=== PATIENT | male | born 1975 | race African-American/Black ===

== ENCOUNTER 2021-09-08 10:50 | Inpatient (IN) ==
[2021-09-08] MEDS ORDERED: METOPROLOL TARTRATE 5 MG/5 ML VIAL IV ONE ×2 (13:15→13:16)
[2021-09-08] MEDS ORDERED: ALBUTEROL 2.5 MG/3 ML NEB RESP TX PRN (13:21)
[2021-09-08 13:24] LABS: ABG Base Excess -7.5 MMOL/L (-2.5-2.5); ABG HCO3 18.4 MMOL/L (20-26); ABG Oxygen Saturation 96.6 % (95-100); ABG PCO2 45.1 MM HG (35-48); ABG PH 7.253 (7.35-7.45); ABG TCO2 17.6 MMOL/L (23-27)
[2021-09-08] MEDS ORDERED: MORPHINE 2 MG/1 ML SYRINGE IV PRN (13:24)
[2021-09-08] MEDS ORDERED: ONDANSETRON 4 MG/2 ML VIAL IV PRN (13:24)
[2021-09-08 13:26] LABS: Bacteria,Urine Occasional /HPF (Few); Mucus,Urine Occasional /LPF (Occasional); RBC,Urine 153 /HPF (0-4); Squamous Epithelial Cell,Urine Occasional /HPF (0-10); Urine Appearance Clear (Clear); Urine Color Yellow (Yellow)
[2021-09-08 13:27] LABS: Bilirubin,Urine Negative (Negative); Blood, Urine Large mg/dL (Negative); Glucose,Urine (UA) Negative (Negative); Ketones,Urine Negative (Negative); Nitrite,Urine Negative (Negative); Protein,Urine Negative (Negative); Urine Urobilinogen 0.2 eU/dL (<2.0); Urine pH 5.5 (4.5-8.0)
[2021-09-08 14:01] LABS: Barbiturates Screen,Urine Negative (Negative); Benzodiazepines Screen,Urine Negative (Negative); Cannabinoid Screen,Urine Positive (Negative); Opiate Screen,Urine Negative (Negative); Phencyclidine Screen,Urine Negative (Negative)
[2021-09-08] MEDS ORDERED: ENOXAPARIN 40 MG/0.4 ML SYRINGE SUBCUT SCH (14:30)
[2021-09-08] MEDS ORDERED: SODIUM BICARBONATE 50 MEQ/50 ML VIAL IV ONE (14:43)
[2021-09-08 14:59] LABS: Hepatitis B Core IgM Quant < 0.05 Index; Hepatitis B Surface Ag Result Non-Reactive (NonReactive); Hepatitis C Virus Ab Quant 0.07 Index; Hepatitis C Virus Ab Result Non-Reactive (NonReactive)
[2021-09-08] MEDS: SODIUM CHLORIDE 0.9% 1,000 ML IV SCH (16:20)
[2021-09-08] MEDS: PANTOPRAZOLE 40 MG VIAL IV SCH (16:21)
[2021-09-08] MEDS: ENOXAPARIN 60 MG/0.6 ML SYRINGE SUBCUT SCH (16:21)
[2021-09-08] MEDS: methylPREDNISolone SOD SUC 40 MG/1 ML VIAL IV SCH ×2 (16:21→21:48)
[2021-09-08] MEDS: AZITHROMYCIN INJ 500 MG in SODIUM CHLORIDE 0.9% 250 ML IV SCH (16:21)
[2021-09-08] MEDS: cefTRIAXone 1,000 MG in SODIUM CHLORIDE 0.9% 100 ML IV SCH (16:21)
[2021-09-08] MEDS ORDERED: GLUCAGON 1 MG VIAL IM PRN (16:43)
[2021-09-08] MEDS ORDERED: DEXTROSE 10% 250 ML BAG IV PRN (16:45)
[2021-09-08] MEDS: ACETAMINOPHEN 650 MG SUPP RECTAL PRN (17:00)
[2021-09-08] MEDS: ALBUTEROL/IPRATROPIUM 3 ML NEB RESP TX SCH (20:10)
[2021-09-08] MEDS: MIDAZOLAM 100 MG in SODIUM CHLORIDE 0.9% 80 ML IV PRN (20:55)
[2021-09-09] MEDS: ALBUTEROL/IPRATROPIUM 3 ML NEB RESP TX SCH ×4 (00:05→19:54)
[2021-09-09] MEDS: SODIUM CHLORIDE 0.9% 1,000 ML IV SCH ×3 (00:13→17:20)
[2021-09-09] MEDS: ENOXAPARIN 60 MG/0.6 ML SYRINGE SUBCUT SCH (02:11)
[2021-09-09 04:05] LABS: ABG HCO3 18.8 MMOL/L (20-26); ABG Oxygen Saturation 98.3 % (95-100); ABG PCO2 42.8 MM HG (35-48); ABG PH 7.273 (7.35-7.45); ABG TCO2 17.5 MMOL/L (23-27)
[2021-09-09 04:10] LABS: Basophils # 0.2 10*3/uL (0.0-0.2); Basophils % 0.7 % (0.0-0.8); Hematocrit 36.2 VOL% (42.0-52.0); Hemoglobin 12.9 GM/DL (14.0-18.0); Lymphocytes # 0.4 10*3/uL (1.4-4.0); Lymphocytes % 1.4 % (21.2-54.2); Mean Corpuscular HGB Conc 35.6 GM/DL (32-36); Mean Corpuscular Volume 93.3 FL (87-102); Mean Platelet Volume 12.1 FL (9.6-12.0); Monocytes # 0.3 10*3/uL (0.11-0.8); Monocytes % 1.1 % (1.7-12.7); NRBC # 0.02 10*3/uL; Neutrophils % 94.8 % (38.7-73.9); Platelet Count 205 T/CUMM (130-400); Red Blood Count 3.88 MC/CUMM (3.8-5.5); Red Cell Distribution Width 13.6 % (9.3-17.3); White Blood Count 25.6 T/CUMM (4-12)
[2021-09-09 04:19] LABS: PT Patient Result 11.5 SECS (10.5-12.0)
[2021-09-09 04:26] LABS: Lactic Acid 1.6 MMOL/L (0.4-2.0)
[2021-09-09 04:29] LABS: Band Neutrophils 4 % (0-10); Lymphocytes 1 % (20-55); Platelet Estimate Adequate; Total Cells Counted 100
[2021-09-09 04:41] LABS: Albumin 1.5 G/DL (3.4-5.0); Bilirubin,Total 1.3 MG/DL (0.20-1.00); Calcium 8.5 MG/DL (8.5-10.1); Osmolality,Calculated 294.4 MOS/KG (273-304); Potassium 3.8 MMOL/L (3.5-5.1); Risk Ratio 9.67; Thyroid Stimulating Hormone 0.229 uIU/ml (0.358-3.74); Total Protein 6.9 G/DL (6.4-8.2); VLDL Cholesterol 69.2 MG/DL
[2021-09-09] MEDS: methylPREDNISolone SOD SUC 40 MG/1 ML VIAL IV SCH ×3 (05:48→21:38)
[2021-09-09] MEDS ORDERED: SODIUM BICARBONATE 50 MEQ/50 ML VIAL IV ONE (05:54)
[2021-09-09 09:01] LABS: HIV Antigen/Antibody Result Nonreactive (Nonreactive)
[2021-09-09] MEDS: METOPROLOL TARTRATE 25 MG TABLET PO SCH ×2 (09:59→21:15)
[2021-09-09] MEDS: cefTRIAXone 1,000 MG in SODIUM CHLORIDE 0.9% 100 ML IV SCH (14:53)
[2021-09-09] MEDS: AZITHROMYCIN INJ 500 MG in SODIUM CHLORIDE 0.9% 250 ML IV SCH (14:54)
[2021-09-09] MEDS: PANTOPRAZOLE 40 MG VIAL IV SCH (14:54)
[2021-09-09] MEDS: ACETAMINOPHEN 650 MG SUPP RECTAL PRN (15:30)
[2021-09-09] MEDS: MIDAZOLAM 100 MG in SODIUM CHLORIDE 0.9% 80 ML IV PRN (23:53)
[2021-09-10] MEDS: SODIUM CHLORIDE 0.9% 1,000 ML IV SCH ×3 (00:28→18:58)
[2021-09-10] MEDS: ALBUTEROL/IPRATROPIUM 3 ML NEB RESP TX SCH ×4 (01:35→18:54)
[2021-09-10 03:20] LABS: ABG Base Excess -6.6 MMOL/L (-2.5-2.5); ABG HCO3 19.1 MMOL/L (20-26); ABG Oxygen Saturation 97.7 % (95-100); ABG PCO2 42.9 MM HG (35-48); ABG PH 7.278 (7.35-7.45); ABG TCO2 17.9 MMOL/L (23-27)
[2021-09-10 03:24] LABS: Basophils # 0.2 10*3/uL (0.0-0.2); Basophils % 0.5 % (0.0-0.8); Hematocrit 34.5 VOL% (42.0-52.0); Hemoglobin 12.2 GM/DL (14.0-18.0); Immature Granulocytes % 4.9 %; Immature Granulocytes Absolute 1.52 #; Lymphocytes # 0.5 10*3/uL (1.4-4.0); Lymphocytes % 1.5 % (21.2-54.2); Mean Corpuscular HGB Conc 35.4 GM/DL (32-36); Mean Platelet Volume 11.8 FL (9.6-12.0); Monocytes # 0.4 10*3/uL (0.11-0.8); Monocytes % 1.4 % (1.7-12.7); NRBC # 0.05 10*3/uL; Neutrophils % 91.7 % (38.7-73.9); Platelet Count 275 T/CUMM (130-400); Red Blood Count 3.67 MC/CUMM (3.8-5.5); Red Cell Distribution Width 14.4 % (9.3-17.3); White Blood Count 30.7 T/CUMM (4-12)
[2021-09-10 03:38] LABS: Calcium 8.5 MG/DL (8.5-10.1); Osmolality,Calculated 309.7 MOS/KG (273-304); Phosphorous 6.5 MG/DL (2.5-4.9); Potassium 4.1 MMOL/L (3.5-5.1)
[2021-09-10 03:52] LABS: Band Neutrophils 1 % (0-10); Lymphocytes 1 % (20-55); Platelet Estimate Adequate; Total Cells Counted 100
[2021-09-10] MEDS: METOPROLOL TARTRATE 5 MG/5 ML VIAL IV PRN (04:45)
[2021-09-10] MEDS: ENOXAPARIN 60 MG/0.6 ML SYRINGE SUBCUT SCH (04:45)
[2021-09-10] MEDS ORDERED: SODIUM BICARBONATE 50 MEQ/50 ML VIAL IV ONE ×2 (04:52→04:54)
[2021-09-10] MEDS: methylPREDNISolone SOD SUC 40 MG/1 ML VIAL IV SCH ×3 (05:36→22:10)
[2021-09-10] MEDS: METOPROLOL TARTRATE 25 MG TABLET PO SCH ×2 (09:23→20:37)
[2021-09-10 11:08] LABS: Ferritin - (MMA) > 1500.0 ng/ml (22-336)
[2021-09-10] MEDS: cefTRIAXone 1,000 MG in SODIUM CHLORIDE 0.9% 100 ML IV SCH (14:02)
[2021-09-10] MEDS: AZITHROMYCIN INJ 500 MG in SODIUM CHLORIDE 0.9% 250 ML IV SCH (14:49)
[2021-09-10] MEDS: PANTOPRAZOLE 40 MG VIAL IV SCH (14:49)
[2021-09-10] MEDS: fentaNYL INJ 1,250 MCG in SODIUM CHLORIDE 0.9% 225 ML IV PRN (16:15)
[2021-09-10] MEDS ORDERED: DEXTROSE 10% 250 ML BAG IV PRN (17:55)
[2021-09-10] MEDS: INSULIN LISPRO 100 UNIT/ML SUBCUT SCH (18:05)
[2021-09-10] MEDS: MIDAZOLAM 100 MG in SODIUM CHLORIDE 0.9% 80 ML IV PRN (20:12)
[2021-09-11] MEDS: INSULIN LISPRO 100 UNIT/ML SUBCUT SCH ×4 (00:31→17:40)
[2021-09-11] MEDS: ALBUTEROL/IPRATROPIUM 3 ML NEB RESP TX SCH ×4 (00:44→19:42)
[2021-09-11] MEDS: SODIUM CHLORIDE 0.9% 1,000 ML IV SCH ×2 (02:59→09:06)
[2021-09-11 04:27] LABS: ABG HCO3 18.8 MMOL/L (20-26); ABG Oxygen Saturation 98.1 % (95-100); ABG PCO2 39.5 MM HG (35-48); ABG PH 7.294 (7.35-7.45); ABG TCO2 17.4 MMOL/L (23-27)
[2021-09-11 04:28] LABS: Basophils # 0.2 10*3/uL (0.0-0.2); Basophils % 0.7 % (0.0-0.8); Eosinophils % 0.1 % (0.00-10.9); Hematocrit 32.2 VOL% (42.0-52.0); Hemoglobin 11.5 GM/DL (14.0-18.0); Immature Granulocytes % 8.1 %; Immature Granulocytes Absolute 2.13 #; Lymphocytes # 0.7 10*3/uL (1.4-4.0); Lymphocytes % 2.5 % (21.2-54.2); Mean Corpuscular HGB Conc 35.7 GM/DL (32-36); Mean Corpuscular Volume 92.3 FL (87-102); Mean Platelet Volume 11.3 FL (9.6-12.0); Monocytes # 0.8 10*3/uL (0.11-0.8); Monocytes % 2.9 % (1.7-12.7); NRBC # 0.07 10*3/uL; Neutrophils % 85.7 % (38.7-73.9); Platelet Count 317 T/CUMM (130-400); Red Blood Count 3.49 MC/CUMM (3.8-5.5); Red Cell Distribution Width 14.6 % (9.3-17.3); White Blood Count 26.4 T/CUMM (4-12)
[2021-09-11 04:46] LABS: Band Neutrophils 2 % (0-10); Lymphocytes 3 % (20-55); Platelet Estimate Adequate; Total Cells Counted 100
[2021-09-11 04:49] LABS: Albumin 1.3 G/DL (3.4-5.0); Bilirubin,Total 0.5 MG/DL (0.20-1.00); Calcium 8.7 MG/DL (8.5-10.1); Phosphorous 6.6 MG/DL (2.5-4.9); Potassium 4.4 MMOL/L (3.5-5.1); Total Protein 5.9 G/DL (6.4-8.2)
[2021-09-11] MEDS: ENOXAPARIN 60 MG/0.6 ML SYRINGE SUBCUT SCH (05:25)
[2021-09-11] MEDS: fentaNYL INJ 1,250 MCG in SODIUM CHLORIDE 0.9% 225 ML IV PRN ×2 (06:07→17:26)
[2021-09-11] MEDS: methylPREDNISolone SOD SUC 40 MG/1 ML VIAL IV SCH ×3 (06:08→21:30)
[2021-09-11] MEDS: MIDAZOLAM 100 MG in SODIUM CHLORIDE 0.9% 80 ML IV PRN ×2 (08:36→19:19)
[2021-09-11] MEDS: SODIUM BICARB INJ 50 MEQ in SODIUM CHLORIDE 0.45% 1,000 ML IV SCH ×2 (09:37→19:30)
[2021-09-11] MEDS: METOPROLOL TARTRATE 25 MG TABLET PO SCH ×2 (09:37→21:30)
[2021-09-11] MEDS: cefTRIAXone 1,000 MG in SODIUM CHLORIDE 0.9% 100 ML IV SCH (14:12)
[2021-09-11] MEDS: PANTOPRAZOLE 40 MG VIAL IV SCH (14:12)
[2021-09-11] MEDS: AZITHROMYCIN INJ 500 MG in SODIUM CHLORIDE 0.9% 250 ML IV SCH (14:12)
[2021-09-11] MEDS: METOPROLOL TARTRATE 5 MG/5 ML VIAL IV PRN (22:06)
[2021-09-11] MEDS: hydrALAZINE 20 MG/1 ML VIAL IV PRN (22:19)
[2021-09-12] MEDS: ALBUTEROL/IPRATROPIUM 3 ML NEB RESP TX SCH ×5 (00:54→23:53)
[2021-09-12] MEDS: INSULIN LISPRO 100 UNIT/ML SUBCUT SCH ×5 (01:49→23:22)
[2021-09-12] MEDS: fentaNYL INJ 1,250 MCG in SODIUM CHLORIDE 0.9% 225 ML IV PRN ×3 (01:50→17:44)
[2021-09-12 04:55] LABS: ABG Base Excess -5.4 MMOL/L (-2.5-2.5); ABG HCO3 19.9 MMOL/L (20-26); ABG Oxygen Saturation 92.1 % (95-100); ABG PCO2 33.7 MM HG (35-48); ABG PH 7.363 (7.35-7.45); ABG TCO2 16.9 MMOL/L (23-27)
[2021-09-12 04:57] LABS: Basophils # 0.2 10*3/uL (0.0-0.2); Basophils % 0.8 % (0.0-0.8); Eosinophils # 0.1 10*3/uL (0.0-0.87); Eosinophils % 0.3 % (0.00-10.9); Hematocrit 34.3 VOL% (42.0-52.0); Hemoglobin 12.6 GM/DL (14.0-18.0); Immature Granulocytes % 9.5 %; Immature Granulocytes Absolute 2.39 #; Lymphocytes # 1.2 10*3/uL (1.4-4.0); Lymphocytes % 4.7 % (21.2-54.2); Mean Corpuscular HGB Conc 36.7 GM/DL (32-36); Mean Corpuscular Volume 90.5 FL (87-102); Mean Platelet Volume 11.4 FL (9.6-12.0); Monocytes # 1.1 10*3/uL (0.11-0.8); Monocytes % 4.3 % (1.7-12.7); NRBC # 0.05 10*3/uL; Neutrophils % 80.4 % (38.7-73.9); Platelet Count 341 T/CUMM (130-400); Red Blood Count 3.79 MC/CUMM (3.8-5.5); Red Cell Distribution Width 14.4 % (9.3-17.3); White Blood Count 25.1 T/CUMM (4-12)
[2021-09-12 05:20] LABS: Albumin 1.2 G/DL (3.4-5.0); Band Neutrophils 3 % (0-10); Bilirubin,Total 0.5 MG/DL (0.20-1.00); Calcium 8.5 MG/DL (8.5-10.1); Eosinophils 2 % (0-10); Lymphocytes 3 % (20-55); Osmolality,Calculated 341.3 MOS/KG (273-304); Platelet Estimate Adequate; Total Cells Counted 100; Total Protein 5.9 G/DL (6.4-8.2)
[2021-09-12] MEDS: MIDAZOLAM 100 MG in SODIUM CHLORIDE 0.9% 80 ML IV PRN ×2 (05:55→16:28)
[2021-09-12] MEDS: ENOXAPARIN 60 MG/0.6 ML SYRINGE SUBCUT SCH (05:55)
[2021-09-12] MEDS: methylPREDNISolone SOD SUC 40 MG/1 ML VIAL IV SCH ×3 (05:56→21:35)
[2021-09-12] MEDS: SODIUM BICARB INJ 50 MEQ in SODIUM CHLORIDE 0.45% 1,000 ML IV SCH ×2 (06:33→16:29)
[2021-09-12] MEDS: METOPROLOL TARTRATE 25 MG TABLET PO SCH ×2 (08:04→20:30)
[2021-09-12] MEDS ORDERED: cloNIDine 0.3 MG/24 HR PATCH TRANSDERM SCH (09:00)
[2021-09-12] MEDS: METOCLOPRAMIDE 10 MG/2 ML VIAL IV SCH ×3 (11:12→20:30)
[2021-09-12] MEDS: FLUCONAZOLE INJ 200 MG/100 ML PREMIX IV SCH (11:12)
[2021-09-12] MEDS: PANTOPRAZOLE 40 MG VIAL IV SCH (15:49)
[2021-09-12] MEDS: cefTRIAXone 1,000 MG in SODIUM CHLORIDE 0.9% 100 ML IV SCH (15:50)
[2021-09-12] MEDS: AZITHROMYCIN INJ 500 MG in SODIUM CHLORIDE 0.9% 250 ML IV SCH (15:58)
[2021-09-13] MEDS: fentaNYL INJ 1,250 MCG in SODIUM CHLORIDE 0.9% 225 ML IV PRN ×4 (00:44→23:34)
[2021-09-13] MEDS: SODIUM BICARB INJ 50 MEQ in SODIUM CHLORIDE 0.45% 1,000 ML IV SCH ×3 (03:00→23:44)
[2021-09-13] MEDS: METOCLOPRAMIDE 10 MG/2 ML VIAL IV SCH ×4 (03:30→21:49)
[2021-09-13] MEDS: MIDAZOLAM 100 MG in SODIUM CHLORIDE 0.9% 80 ML IV PRN ×2 (03:32→14:52)
[2021-09-13 03:41] LABS: ABG Base Excess -4.7 MMOL/L (-2.5-2.5); ABG HCO3 20.5 MMOL/L (20-26); ABG Oxygen Saturation 93.6 % (95-100); ABG PH 7.363 (7.35-7.45); ABG TCO2 17.6 MMOL/L (23-27); Basophils # 0.1 10*3/uL (0.0-0.2); Basophils % 0.6 % (0.0-0.8); Eosinophils % 0.2 % (0.00-10.9); Hemoglobin 11.9 GM/DL (14.0-18.0); Immature Granulocytes % 9.2 %; Lymphocytes # 1.1 10*3/uL (1.4-4.0); Lymphocytes % 4.4 % (21.2-54.2); Mean Corpuscular HGB Conc 36.1 GM/DL (32-36); Mean Corpuscular Volume 90.4 FL (87-102); Mean Platelet Volume 11.4 FL (9.6-12.0); Monocytes # 1.2 10*3/uL (0.11-0.8); Monocytes % 4.7 % (1.7-12.7); NRBC # 0.06 10*3/uL; Neutrophils % 80.9 % (38.7-73.9); Platelet Count 323 T/CUMM (130-400); Red Blood Count 3.65 MC/CUMM (3.8-5.5); Red Cell Distribution Width 14.7 % (9.3-17.3)
[2021-09-13 03:57] LABS: Albumin 1.3 G/DL (3.4-5.0); Bilirubin,Total 0.5 MG/DL (0.20-1.00); Calcium 8.1 MG/DL (8.5-10.1); Osmolality,Calculated 345.3 MOS/KG (273-304); Potassium 4.4 MMOL/L (3.5-5.1); Total Protein 5.9 G/DL (6.4-8.2)
[2021-09-13 04:40] LABS: Band Neutrophils 2 % (0-10); Lymphocytes 5 % (20-55); Myelocytes 2 %; Total Cells Counted 100
[2021-09-13] MEDS: ENOXAPARIN 60 MG/0.6 ML SYRINGE SUBCUT SCH (04:55)
[2021-09-13] MEDS: INSULIN LISPRO 100 UNIT/ML SUBCUT SCH ×4 (05:24→23:50)
[2021-09-13] MEDS: methylPREDNISolone SOD SUC 40 MG/1 ML VIAL IV SCH ×2 (05:30→18:38)
[2021-09-13] MEDS: ALBUTEROL/IPRATROPIUM 3 ML NEB RESP TX SCH ×4 (07:46→23:45)
[2021-09-13] MEDS: METOPROLOL TARTRATE 25 MG TABLET PO SCH ×2 (08:49→21:49)
[2021-09-13] MEDS: FLUCONAZOLE INJ 200 MG/100 ML PREMIX IV SCH (08:50)
[2021-09-13] MEDS: cefTRIAXone 1,000 MG in SODIUM CHLORIDE 0.9% 100 ML IV SCH (17:15)
[2021-09-13] MEDS: PANTOPRAZOLE 40 MG VIAL IV SCH (17:15)
[2021-09-13] MEDS: hydrALAZINE 20 MG/1 ML VIAL IV PRN (18:30)
[2021-09-13] MEDS: AZITHROMYCIN INJ 500 MG in SODIUM CHLORIDE 0.9% 250 ML IV SCH (18:38)
[2021-09-13] MEDS ORDERED: ROCURONIUM 100 MG/10 ML VIAL IV ONE (19:07)
[2021-09-13] MEDS: METOPROLOL TARTRATE 5 MG/5 ML VIAL IV PRN (19:20)
[2021-09-13] MEDS: ROCURONIUM 500 MG in SODIUM CHLORIDE 0.9% 500 ML IV PRN (19:55)
[2021-09-14] MEDS: methylPREDNISolone SOD SUC 40 MG/1 ML VIAL IV SCH ×3 (00:05→16:41)
[2021-09-14] MEDS: MIDAZOLAM 100 MG in SODIUM CHLORIDE 0.9% 80 ML IV PRN ×3 (01:40→21:46)
[2021-09-14] MEDS: METOCLOPRAMIDE 10 MG/2 ML VIAL IV SCH ×4 (03:27→21:27)
[2021-09-14] MEDS: ENOXAPARIN 60 MG/0.6 ML SYRINGE SUBCUT SCH (04:11)
[2021-09-14 04:25] LABS: ABG Base Excess -5.9 MMOL/L (-2.5-2.5); ABG HCO3 19.6 MMOL/L (20-26); ABG Oxygen Saturation 98.7 % (95-100); ABG PCO2 32.9 MM HG (35-48); ABG PH 7.363 (7.35-7.45); ABG TCO2 16.8 MMOL/L (23-27)
[2021-09-14 04:29] LABS: Basophils # 0.2 10*3/uL (0.0-0.2); Basophils % 0.5 % (0.0-0.8); Eosinophils # 0.1 10*3/uL (0.0-0.87); Eosinophils % 0.3 % (0.00-10.9); Hematocrit 29.7 VOL% (42.0-52.0); Hemoglobin 10.6 GM/DL (14.0-18.0); Immature Granulocytes % 8.2 %; Immature Granulocytes Absolute 2.64 #; Lymphocytes # 1.2 10*3/uL (1.4-4.0); Lymphocytes % 3.8 % (21.2-54.2); Mean Corpuscular HGB Conc 35.7 GM/DL (32-36); Mean Corpuscular Volume 92.5 FL (87-102); Mean Platelet Volume 11.4 FL (9.6-12.0); Monocytes % 3.1 % (1.7-12.7); NRBC # 0.03 10*3/uL; Neutrophils % 84.1 % (38.7-73.9); Platelet Count 318 T/CUMM (130-400); Red Blood Count 3.21 MC/CUMM (3.8-5.5); Red Cell Distribution Width 15.1 % (9.3-17.3); White Blood Count 32.3 T/CUMM (4-12)
[2021-09-14 04:49] LABS: Albumin 1.3 G/DL (3.4-5.0); Bilirubin,Total 0.5 MG/DL (0.20-1.00); Osmolality,Calculated 349.1 MOS/KG (273-304); Phosphorous 6.5 MG/DL (2.5-4.9); Potassium 4.7 MMOL/L (3.5-5.1)
[2021-09-14 05:15] LABS: Band Neutrophils 1 % (0-10); Lymphocytes 4 % (20-55); Metamyelocytes 1 %; Myelocytes 1 %; Total Cells Counted 100
[2021-09-14 05:16] LABS: Microcytosis Slight; Platelet Estimate Normal; Target Cells Slight
[2021-09-14] MEDS: INSULIN LISPRO 100 UNIT/ML SUBCUT SCH ×3 (05:47→18:11)
[2021-09-14] MEDS: fentaNYL INJ 1,250 MCG in SODIUM CHLORIDE 0.9% 225 ML IV PRN ×3 (06:02→19:30)
[2021-09-14] MEDS: ROCURONIUM 500 MG in SODIUM CHLORIDE 0.9% 500 ML IV PRN ×2 (06:26→17:34)
[2021-09-14] MEDS: ALBUTEROL/IPRATROPIUM 3 ML NEB RESP TX SCH ×4 (06:59→23:48)
[2021-09-14] MEDS ORDERED: SODIUM BICARBONATE 50 MEQ/50 ML VIAL IV ONE (09:04)
[2021-09-14] MEDS: FLUCONAZOLE INJ 200 MG/100 ML PREMIX IV SCH (09:47)
[2021-09-14] MEDS: METOPROLOL TARTRATE 25 MG TABLET PO SCH ×2 (09:48→21:26)
[2021-09-14] MEDS: PANTOPRAZOLE 40 MG VIAL IV SCH (09:48)
[2021-09-14] MEDS: SODIUM BICARB INJ 50 MEQ in SODIUM CHLORIDE 0.45% 1,000 ML IV SCH ×2 (10:32→21:00)
[2021-09-14] MEDS ORDERED: FUROSEMIDE 100 MG/10 ML VIAL IV ONE (11:07)
[2021-09-14] MEDS ORDERED: FUROSEMIDE INJ 120 MG in SODIUM CHLORIDE 0.9% 50 ML IV ONE (11:30)
[2021-09-14] MEDS ORDERED: MICAFUNGIN 100 MG in SODIUM CHLORIDE 0.9% 100 ML IV SCH (13:00)
[2021-09-14] MEDS: AZITHROMYCIN INJ 500 MG in SODIUM CHLORIDE 0.9% 250 ML IV SCH (16:41)
[2021-09-15] MEDS: INSULIN LISPRO 100 UNIT/ML SUBCUT SCH ×4 (00:28→18:05)
[2021-09-15] MEDS: methylPREDNISolone SOD SUC 40 MG/1 ML VIAL IV SCH ×3 (00:28→20:39)
[2021-09-15] MEDS: hydrALAZINE 20 MG/1 ML VIAL IV PRN (02:01)
[2021-09-15] MEDS: fentaNYL INJ 1,250 MCG in SODIUM CHLORIDE 0.9% 225 ML IV PRN ×3 (02:19→19:09)
[2021-09-15] MEDS: METOCLOPRAMIDE 10 MG/2 ML VIAL IV SCH ×4 (02:59→20:37)
[2021-09-15] MEDS: ENOXAPARIN 60 MG/0.6 ML SYRINGE SUBCUT SCH (04:08)
[2021-09-15] MEDS: ROCURONIUM 500 MG in SODIUM CHLORIDE 0.9% 500 ML IV PRN ×2 (04:08→16:06)
[2021-09-15 05:12] LABS: ABG Base Excess -4.9 MMOL/L (-2.5-2.5); ABG HCO3 20.3 MMOL/L (20-26); ABG Oxygen Saturation 96.1 % (95-100); ABG PCO2 36.3 MM HG (35-48); ABG PH 7.351 (7.35-7.45); ABG PO2 97.4 MM HG (80-95); ABG TCO2 18.2 MMOL/L (23-27)
[2021-09-15 05:16] LABS: Basophils # 0.1 10*3/uL (0.0-0.2); Basophils % 0.4 % (0.0-0.8); Eosinophils % 0.1 % (0.00-10.9); Hematocrit 31.3 VOL% (42.0-52.0); Hemoglobin 11.1 GM/DL (14.0-18.0); Immature Granulocytes % 5.6 %; Immature Granulocytes Absolute 1.66 #; Lymphocytes # 1.2 10*3/uL (1.4-4.0); Mean Corpuscular HGB Conc 35.5 GM/DL (32-36); Mean Corpuscular Volume 92.3 FL (87-102); Mean Platelet Volume 11.7 FL (9.6-12.0); Monocytes # 0.9 10*3/uL (0.11-0.8); Neutrophils % 86.9 % (38.7-73.9); Platelet Count 272 T/CUMM (130-400); Red Blood Count 3.39 MC/CUMM (3.8-5.5); White Blood Count 29.4 T/CUMM (4-12)
[2021-09-15 05:34] LABS: Band Neutrophils 2 % (0-10); Lymphocytes 5 % (20-55); Platelet Estimate Adequate; Total Cells Counted 100
[2021-09-15 05:35] LABS: Macrocytosis Slight; Target Cells Slight
[2021-09-15 05:51] LABS: Albumin 1.4 G/DL (3.4-5.0); Bilirubin,Total 0.4 MG/DL (0.20-1.00); Calcium 7.8 MG/DL (8.5-10.1); Osmolality,Calculated 347.1 MOS/KG (273-304); Potassium 4.5 MMOL/L (3.5-5.1); Total Protein 5.9 G/DL (6.4-8.2)
[2021-09-15 06:02] LABS: Phosphorous 7.3 MG/DL (2.5-4.9)
[2021-09-15] MEDS: ALBUTEROL/IPRATROPIUM 3 ML NEB RESP TX SCH ×3 (06:53→19:13)
[2021-09-15] MEDS: SODIUM BICARB INJ 50 MEQ in SODIUM CHLORIDE 0.45% 1,000 ML IV SCH (08:12)
[2021-09-15] MEDS: MIDAZOLAM 100 MG in SODIUM CHLORIDE 0.9% 80 ML IV PRN ×2 (08:42→19:36)
[2021-09-15] MEDS: SODIUM CHLORIDE 0.45% 1,000 ML IV SCH (08:44)
[2021-09-15] MEDS: PANTOPRAZOLE 40 MG VIAL IV SCH (09:28)
[2021-09-15] MEDS: METOPROLOL TARTRATE 25 MG TABLET PO SCH ×2 (09:30→20:36)
[2021-09-15] MEDS: MINERAL OIL/PETROLATUM OPH OINT 3.5 GM TUBE BOTH EYES SCH ×3 (10:43→21:26)
[2021-09-15] MEDS: cloNIDine 0.1 MG TABLET PER TUBE PRN (11:33)
[2021-09-15] MEDS: FLUCONAZOLE INJ 200 MG/100 ML PREMIX IV SCH (11:55)
[2021-09-15] MEDS: THIAMINE 200 MG/2 ML VIAL IV SCH ×3 (13:15→20:40)
[2021-09-15] MEDS: AZITHROMYCIN INJ 500 MG in SODIUM CHLORIDE 0.9% 250 ML IV SCH (17:02)
[2021-09-15] MEDS: FOLIC ACID 1 MG TABLET PO SCH (20:37)
[2021-09-16] MEDS: ALBUTEROL/IPRATROPIUM 3 ML NEB RESP TX SCH ×4 (00:03→18:55)
[2021-09-16] MEDS: SODIUM CHLORIDE 0.45% 1,000 ML IV SCH (00:08)
[2021-09-16] MEDS: INSULIN LISPRO 100 UNIT/ML SUBCUT SCH ×5 (00:11→23:53)
[2021-09-16] MEDS: METOCLOPRAMIDE 10 MG/2 ML VIAL IV SCH ×4 (02:28→20:41)
[2021-09-16] MEDS: fentaNYL INJ 1,250 MCG in SODIUM CHLORIDE 0.9% 225 ML IV PRN ×3 (02:52→18:30)
[2021-09-16 04:47] LABS: ABG Base Excess -7.2 MMOL/L (-2.5-2.5); ABG HCO3 18.5 MMOL/L (20-26); ABG Oxygen Saturation 98.1 % (95-100); ABG PCO2 34.5 MM HG (35-48); ABG PH 7.326 (7.35-7.45); ABG TCO2 16.5 MMOL/L (23-27)
[2021-09-16 04:49] LABS: Basophils # 0.1 10*3/uL (0.0-0.2); Basophils % 0.2 % (0.0-0.8); Eosinophils # 0.1 10*3/uL (0.0-0.87); Eosinophils % 0.2 % (0.00-10.9); Hematocrit 29.8 VOL% (42.0-52.0); Hemoglobin 10.1 GM/DL (14.0-18.0); Immature Granulocytes % 3.2 %; Immature Granulocytes Absolute 0.94 #; Lymphocytes # 1.1 10*3/uL (1.4-4.0); Lymphocytes % 3.8 % (21.2-54.2); Mean Corpuscular HGB Conc 33.9 GM/DL (32-36); Mean Corpuscular Volume 95.5 FL (87-102); Mean Platelet Volume 11.6 FL (9.6-12.0); Monocytes % 3.3 % (1.7-12.7); Neutrophils % 89.3 % (38.7-73.9); Platelet Count 233 T/CUMM (130-400); Red Blood Count 3.12 MC/CUMM (3.8-5.5); Red Cell Distribution Width 15.9 % (9.3-17.3); White Blood Count 29.4 T/CUMM (4-12)
[2021-09-16 05:04] LABS: Albumin 1.4 G/DL (3.4-5.0); Bilirubin,Total 0.4 MG/DL (0.20-1.00); Calcium 7.8 MG/DL (8.5-10.1); Osmolality,Calculated 346.4 MOS/KG (273-304); Potassium 4.9 MMOL/L (3.5-5.1); Total Protein 5.8 G/DL (6.4-8.2)
[2021-09-16 05:07] LABS: Eosinophils 1 % (0-10); Lymphocytes 5 % (20-55); Platelet Estimate Adequate; Total Cells Counted 100
[2021-09-16] MEDS: ENOXAPARIN 60 MG/0.6 ML SYRINGE SUBCUT SCH (05:53)
[2021-09-16 06:02] LABS: Free T4 (Free Thyroxine) 0.32 NG/DL (0.76-1.46); Thyroid Stimulating Hormone 2.13 uIU/ml (0.358-3.74)
[2021-09-16] MEDS: MIDAZOLAM 100 MG in SODIUM CHLORIDE 0.9% 80 ML IV PRN ×2 (07:45→19:50)
[2021-09-16] MEDS: methylPREDNISolone SOD SUC 40 MG/1 ML VIAL IV SCH ×2 (09:27→20:40)
[2021-09-16] MEDS: METOPROLOL TARTRATE 25 MG TABLET PO SCH ×2 (09:29→20:41)
[2021-09-16] MEDS: PANTOPRAZOLE 40 MG VIAL IV SCH (09:29)
[2021-09-16] MEDS: THIAMINE 200 MG/2 ML VIAL IV SCH ×3 (09:34→20:42)
[2021-09-16] MEDS: MINERAL OIL/PETROLATUM OPH OINT 3.5 GM TUBE BOTH EYES PRN (09:46)
[2021-09-16] MEDS: MINERAL OIL/PETROLATUM OPH OINT 3.5 GM TUBE BOTH EYES SCH (10:06)
[2021-09-16 10:23] LABS: Mucus,Urine Occasional /LPF (Occasional); RBC,Urine 6 /HPF (0-4); Urine Appearance Clear (Clear); Urine Color Yellow (Yellow)
[2021-09-16 10:24] LABS: Bilirubin,Urine Negative (Negative); Blood, Urine Small mg/dL (Negative); Glucose,Urine (UA) Negative (Negative); Ketones,Urine Negative (Negative); Nitrite,Urine Negative (Negative); Protein,Urine Trace mg/dL (Negative); Urine Specific Gravity 1.015 (1.001-1.035); Urine Urobilinogen 0.2 eU/dL (<2.0); Urine pH 5.5 (4.5-8.0)
[2021-09-16] MEDS: cloNIDine 0.1 MG TABLET PER TUBE PRN (10:52)
[2021-09-16] MEDS ORDERED: cefTRIAXone 1,000 MG in SODIUM CHLORIDE 0.9% 100 ML IV SCH (11:00)
[2021-09-16] MEDS: hydrALAZINE 20 MG/1 ML VIAL IV PRN (12:03)
[2021-09-16] MEDS: FLUCONAZOLE INJ 200 MG/100 ML PREMIX IV SCH (12:08)
[2021-09-16] MEDS: AZITHROMYCIN INJ 500 MG in SODIUM CHLORIDE 0.9% 250 ML IV SCH (17:25)
[2021-09-16] MEDS: FOLIC ACID 1 MG TABLET PO SCH (20:41)
[2021-09-16] MEDS ORDERED: THIAMINE 100 MG TABLET PO SCH (21:00)
[2021-09-17] MEDS: fentaNYL INJ 1,250 MCG in SODIUM CHLORIDE 0.9% 225 ML IV PRN ×3 (01:30→20:06)
[2021-09-17] MEDS: ALBUTEROL/IPRATROPIUM 3 ML NEB RESP TX SCH ×4 (02:10→18:56)
[2021-09-17 03:59] LABS: ABG Base Excess -9.6 MMOL/L (-2.5-2.5); ABG HCO3 16.7 MMOL/L (20-26); ABG Oxygen Saturation 97.7 % (95-100); ABG PCO2 35.5 MM HG (35-48); ABG PH 7.275 (7.35-7.45); ABG TCO2 15.2 MMOL/L (23-27)
[2021-09-17] MEDS: ENOXAPARIN 60 MG/0.6 ML SYRINGE SUBCUT SCH (04:00)
[2021-09-17] MEDS: METOCLOPRAMIDE 10 MG/2 ML VIAL IV SCH ×4 (04:01→20:40)
[2021-09-17 04:05] LABS: Basophils # 0.1 10*3/uL (0.0-0.2); Basophils % 0.2 % (0.0-0.8); Eosinophils # 0.1 10*3/uL (0.0-0.87); Eosinophils % 0.3 % (0.00-10.9); Hematocrit 29.5 VOL% (42.0-52.0); Hemoglobin 9.9 GM/DL (14.0-18.0); Immature Granulocytes % 2.3 %; Immature Granulocytes Absolute 0.59 #; Lymphocytes % 4.1 % (21.2-54.2); Mean Corpuscular HGB Conc 33.6 GM/DL (32-36); Mean Corpuscular Volume 96.7 FL (87-102); Mean Platelet Volume 12.1 FL (9.6-12.0); Monocytes # 0.8 10*3/uL (0.11-0.8); Monocytes % 3.1 % (1.7-12.7); Platelet Count 218 T/CUMM (130-400); Red Blood Count 3.05 MC/CUMM (3.8-5.5); Red Cell Distribution Width 16.1 % (9.3-17.3); White Blood Count 25.1 T/CUMM (4-12)
[2021-09-17 04:21] LABS: Calcium 7.6 MG/DL (8.5-10.1); Osmolality,Calculated 337.7 MOS/KG (273-304); Potassium 5.4 MMOL/L (3.5-5.1)
[2021-09-17 04:51] LABS: Lymphocytes 6 % (20-55); Platelet Estimate Adequate; Total Cells Counted 100
[2021-09-17] MEDS ORDERED: SODIUM POLYSTYRENE SULFATE 15 GM/60 ML BOTTLE PO ONE (04:52)
[2021-09-17] MEDS ORDERED: SODIUM BICARBONATE 50 MEQ/50 ML VIAL IV ONE (04:52)
[2021-09-17] MEDS: INSULIN LISPRO 100 UNIT/ML SUBCUT SCH ×3 (05:27→17:56)
[2021-09-17] MEDS: MIDAZOLAM 100 MG in SODIUM CHLORIDE 0.9% 80 ML IV PRN (06:10)
[2021-09-17] MEDS ORDERED: FUROSEMIDE 40 MG/4 ML VIAL IV ONE (08:58)
[2021-09-17] MEDS: PANTOPRAZOLE 40 MG VIAL IV SCH (08:59)
[2021-09-17] MEDS: PIPERACILLIN/TAZOBACTAM 3,375 MG in SODIUM CHLORIDE 0.9% 100 ML IV SCH ×3 (08:59→23:44)
[2021-09-17] MEDS: methylPREDNISolone SOD SUC 40 MG/1 ML VIAL IV SCH ×2 (09:02→20:40)
[2021-09-17] MEDS: THIAMINE 200 MG/2 ML VIAL IV SCH ×3 (09:03→20:40)
[2021-09-17] MEDS: METOPROLOL TARTRATE 25 MG TABLET PO SCH ×2 (09:03→20:39)
[2021-09-17 09:45] LABS: Calcium 7.5 MG/DL (8.5-10.1); Osmolality,Calculated 335.6 MOS/KG (273-304); Potassium 4.9 MMOL/L (3.5-5.1)
[2021-09-17 10:00] LABS: S. Pneumo Serotype 1 42.8 mcg/mL (>=2.3); S. Pneumo Serotype 10A 57.6 mcg/mL (>=2.9); S. Pneumo Serotype 11A 13.2 mcg/mL (>=2.4); S. Pneumo Serotype 12F 3.5 mcg/mL (>=0.6); S. Pneumo Serotype 14 27.5 mcg/mL (>=7.0); S. Pneumo Serotype 15B 9.1 mcg/mL (>=3.3); S. Pneumo Serotype 17F 109.4 mcg/mL (>=7.8); S. Pneumo Serotype 18C 2.7 mcg/mL (>=3.3); S. Pneumo Serotype 19A 41.7 mcg/mL (>=17.1); S. Pneumo Serotype 19F 75.6 mcg/mL (>=15.0); S. Pneumo Serotype 2 4.8 mcg/mL (>=1.0); S. Pneumo Serotype 20 14.2 mcg/mL (>=1.3); S. Pneumo Serotype 22F > 150.0 mcg/mL (>=7.2); S. Pneumo Serotype 23F > 150.0 mcg/mL (>=8.0); S. Pneumo Serotype 3 12.8 mcg/mL (>=1.8); S. Pneumo Serotype 33F 18.4 mcg/mL (>=1.7); S. Pneumo Serotype 4 5.4 mcg/mL (>=0.6); S. Pneumo Serotype 6B 32.7 mcg/mL (>=4.7); S. Pneumo Serotype 7F 69.9 mcg/mL (>=3.2); S. Pneumo Serotype 8 9.6 mcg/mL (>=2.9); S. Pneumo Serotype 9V 16.5 mcg/mL (>=2.6)
[2021-09-17] MEDS ORDERED: ENOXAPARIN 30 MG/0.3 ML SYRINGE SUBCUT SCH (10:00)
[2021-09-17] MEDS: FLUCONAZOLE INJ 200 MG/100 ML PREMIX IV SCH (12:27)
[2021-09-17] MEDS: AZITHROMYCIN INJ 500 MG in SODIUM CHLORIDE 0.9% 250 ML IV SCH (18:32)
[2021-09-17] MEDS: FOLIC ACID 1 MG TABLET PO SCH (20:39)
[2021-09-17] MEDS: hydrALAZINE 20 MG/1 ML VIAL IV PRN (20:39)
[2021-09-17] MEDS: cloNIDine 0.1 MG TABLET PER TUBE PRN (21:16)
[2021-09-17] MEDS: METOPROLOL TARTRATE 5 MG/5 ML VIAL IV PRN (21:38)
[2021-09-17 21:41] LABS: M. Tuberculosis PCR Result Negative (Negative)
[2021-09-18] MEDS: ALBUTEROL/IPRATROPIUM 3 ML NEB RESP TX SCH ×5 (00:09→23:41)
[2021-09-18] MEDS: INSULIN LISPRO 100 UNIT/ML SUBCUT SCH ×5 (00:29→23:43)
[2021-09-18 03:34] LABS: ABG Base Excess -9.6 MMOL/L (-2.5-2.5); ABG HCO3 16.8 MMOL/L (20-26); ABG PCO2 34.6 MM HG (35-48); ABG PH 7.283 (7.35-7.45); ABG TCO2 14.9 MMOL/L (23-27)
[2021-09-18 03:35] LABS: Basophils # 0.1 10*3/uL (0.0-0.2); Basophils % 0.2 % (0.0-0.8); Eosinophils % 0.1 % (0.00-10.9); Hematocrit 32.8 VOL% (42.0-52.0); Hemoglobin 11.1 GM/DL (14.0-18.0); Immature Granulocytes % 1.7 %; Immature Granulocytes Absolute 0.42 #; Lymphocytes # 0.9 10*3/uL (1.4-4.0); Lymphocytes % 3.4 % (21.2-54.2); Mean Corpuscular HGB Conc 33.8 GM/DL (32-36); Mean Corpuscular Volume 96.5 FL (87-102); Mean Platelet Volume 12.1 FL (9.6-12.0); Monocytes # 0.7 10*3/uL (0.11-0.8); Monocytes % 2.9 % (1.7-12.7); Neutrophils % 91.7 % (38.7-73.9); Platelet Count 237 T/CUMM (130-400); Red Cell Distribution Width 16.4 % (9.3-17.3); White Blood Count 25.3 T/CUMM (4-12)
[2021-09-18 03:52] LABS: Calcium 7.5 MG/DL (8.5-10.1); Ferritin 1325.1 ng/mL (26-388); Osmolality,Calculated 338.7 MOS/KG (273-304); Potassium 5.1 MMOL/L (3.5-5.1)
[2021-09-18 03:54] LABS: Lymphocytes 5 % (20-55); Total Cells Counted 100
[2021-09-18 03:55] LABS: Macrocytosis Slight; Platelet Estimate Normal
[2021-09-18 04:00] LABS: Phosphorous 9.4 MG/DL (2.5-4.9)
[2021-09-18] MEDS: METOCLOPRAMIDE 10 MG/2 ML VIAL IV SCH ×4 (04:08→21:05)
[2021-09-18] MEDS: ENOXAPARIN 30 MG/0.3 ML SYRINGE SUBCUT SCH (04:08)
[2021-09-18] MEDS ORDERED: SODIUM BICARBONATE 50 MEQ/50 ML VIAL IV ONE (08:38)
[2021-09-18] MEDS: METOPROLOL TARTRATE 25 MG TABLET PO SCH ×2 (08:45→21:05)
[2021-09-18] MEDS: methylPREDNISolone SOD SUC 40 MG/1 ML VIAL IV SCH (08:45)
[2021-09-18] MEDS: PIPERACILLIN/TAZOBACTAM 3,375 MG in SODIUM CHLORIDE 0.9% 100 ML IV SCH ×3 (08:45→23:35)
[2021-09-18] MEDS: PANTOPRAZOLE 40 MG VIAL IV SCH (08:46)
[2021-09-18] MEDS ORDERED: SODIUM BICARBONATE 650 MG TABLET PO SCH (09:00)
[2021-09-18] MEDS: fentaNYL INJ 1,250 MCG in SODIUM CHLORIDE 0.9% 225 ML IV PRN ×2 (09:19→23:30)
[2021-09-18] MEDS ORDERED: methylPREDNISolone SOD SUC 40 MG/1 ML VIAL IV SCH ×2 (10:13→22:00)
[2021-09-18] MEDS ORDERED: FUROSEMIDE 40 MG/4 ML VIAL IV ONE (10:13)
[2021-09-18] MEDS: FLUCONAZOLE INJ 200 MG/100 ML PREMIX IV SCH (11:31)
[2021-09-18 14:56] LABS: Calcium 7.7 MG/DL (8.5-10.1); Osmolality,Calculated 340.7 MOS/KG (273-304); Potassium 5.3 MMOL/L (3.5-5.1)
[2021-09-18] MEDS ORDERED: SODIUM POLYSTYRENE SULFATE 15 GM/60 ML BOTTLE PO ONE (15:18)
[2021-09-18] MEDS: AZITHROMYCIN INJ 500 MG in SODIUM CHLORIDE 0.9% 250 ML IV SCH (16:09)
[2021-09-18] MEDS: FOLIC ACID 1 MG TABLET PO SCH (21:05)
[2021-09-19] MEDS: METOCLOPRAMIDE 10 MG/2 ML VIAL IV SCH ×4 (02:55→20:16)
[2021-09-19 03:50] LABS: ABG Base Excess -7.5 MMOL/L (-2.5-2.5); ABG HCO3 18.4 MMOL/L (20-26); ABG Oxygen Saturation 96.8 % (95-100); ABG PCO2 40.7 MM HG (35-48); ABG PH 7.277 (7.35-7.45); ABG TCO2 17.3 MMOL/L (23-27)
[2021-09-19 03:51] LABS: Basophils % 0.2 % (0.0-0.8); Eosinophils # 0.4 10*3/uL (0.0-0.87); Eosinophils % 1.8 % (0.00-10.9); Hematocrit 29.7 VOL% (42.0-52.0); Immature Granulocytes % 1.3 %; Immature Granulocytes Absolute 0.28 #; Lymphocytes % 4.8 % (21.2-54.2); Mean Corpuscular HGB Conc 33.7 GM/DL (32-36); Mean Corpuscular Volume 96.7 FL (87-102); Mean Platelet Volume 12.1 FL (9.6-12.0); Monocytes # 1.1 10*3/uL (0.11-0.8); Monocytes % 5.3 % (1.7-12.7); Neutrophils % 86.6 % (38.7-73.9); Platelet Count 222 T/CUMM (130-400); Red Blood Count 3.07 MC/CUMM (3.8-5.5); Red Cell Distribution Width 16.2 % (9.3-17.3); White Blood Count 21.7 T/CUMM (4-12)
[2021-09-19 04:09] LABS: Albumin 1.5 G/DL (3.4-5.0); Bilirubin,Total 0.4 MG/DL (0.20-1.00); Calcium 7.6 MG/DL (8.5-10.1); Eosinophils 2 % (0-10); Lymphocytes 9 % (20-55); Osmolality,Calculated 346.1 MOS/KG (273-304); Platelet Estimate Adequate; Potassium 4.4 MMOL/L (3.5-5.1); Total Cells Counted 100; Total Protein 6.3 G/DL (6.4-8.2)
[2021-09-19] MEDS: hydrALAZINE 20 MG/1 ML VIAL IV PRN (04:22)
[2021-09-19] MEDS: ENOXAPARIN 30 MG/0.3 ML SYRINGE SUBCUT SCH (04:30)
[2021-09-19] MEDS ORDERED: MIDAZOLAM 2 MG/2 ML VIAL IV ONE (04:57)
[2021-09-19] MEDS ORDERED: MIDAZOLAM 10 MG/2 ML VIAL ONE (05:00)
[2021-09-19] MEDS ORDERED: ENOXAPARIN 30 MG/0.3 ML SYRINGE SUBCUT SCH (05:00)
[2021-09-19] MEDS ORDERED: ROCURONIUM 100 MG/10 ML VIAL IV ONE (05:12)
[2021-09-19] MEDS: INSULIN LISPRO 100 UNIT/ML SUBCUT SCH ×3 (05:24→18:18)
[2021-09-19] MEDS: MIDAZOLAM 100 MG in SODIUM CHLORIDE 0.9% 80 ML IV PRN ×3 (05:33→20:19)
[2021-09-19] MEDS: ROCURONIUM 500 MG in SODIUM CHLORIDE 0.9% 500 ML IV PRN ×3 (05:53→20:42)
[2021-09-19] MEDS: ALBUTEROL/IPRATROPIUM 3 ML NEB RESP TX SCH ×4 (07:20→22:34)
[2021-09-19] MEDS ORDERED: LEVOFLOXACIN INJ 750 MG/150 ML PREMIX IV ONE (07:43)
[2021-09-19] MEDS: amLODIPine 10 MG TABLET PO SCH (09:33)
[2021-09-19] MEDS: METOPROLOL TARTRATE 25 MG TABLET PO SCH ×2 (09:33→20:16)
[2021-09-19] MEDS: PANTOPRAZOLE 40 MG VIAL IV SCH (09:34)
[2021-09-19] MEDS: methylPREDNISolone SOD SUC 40 MG/1 ML VIAL IV SCH ×2 (09:39→18:00)
[2021-09-19] MEDS: fentaNYL INJ 1,250 MCG in SODIUM CHLORIDE 0.9% 225 ML IV PRN ×2 (10:24→23:45)
[2021-09-19] MEDS: SODIUM BICARB INJ 100 MEQ in STERILE WATER INJ 1,000 ML IV SCH (10:49)
[2021-09-19] MEDS: FLUCONAZOLE INJ 200 MG/100 ML PREMIX IV SCH (11:45)
[2021-09-19 12:18] LABS: Calcium 7.7 MG/DL (8.5-10.1); Osmolality,Calculated 347.3 MOS/KG (273-304); Potassium 4.5 MMOL/L (3.5-5.1)
[2021-09-19] MEDS: AZITHROMYCIN INJ 500 MG in SODIUM CHLORIDE 0.9% 250 ML IV SCH (18:02)
[2021-09-19] MEDS: FOLIC ACID 1 MG TABLET PO SCH (20:16)
[2021-09-19] MEDS: MINERAL OIL/PETROLATUM OPH OINT 3.5 GM TUBE BOTH EYES PRN (20:19)
[2021-09-19 20:36] LABS: M. Tuberculosis PCR Result Negative (Negative); M. Tuberculosis PCR Source SPUTUM
[2021-09-20] MEDS: INSULIN LISPRO 100 UNIT/ML SUBCUT SCH ×4 (00:42→17:57)
[2021-09-20] MEDS: methylPREDNISolone SOD SUC 40 MG/1 ML VIAL IV SCH ×3 (01:13→17:52)
[2021-09-20] MEDS: METOCLOPRAMIDE 10 MG/2 ML VIAL IV SCH ×4 (02:55→20:09)
[2021-09-20] MEDS: ROCURONIUM 500 MG in SODIUM CHLORIDE 0.9% 500 ML IV PRN ×2 (03:48→14:30)
[2021-09-20 04:18] LABS: Basophils % 0.1 % (0.0-0.8); Eosinophils % 0.2 % (0.00-10.9); Hematocrit 29.4 VOL% (42.0-52.0); Hemoglobin 9.8 GM/DL (14.0-18.0); Immature Granulocytes Absolute 0.18 #; Lymphocytes # 0.5 10*3/uL (1.4-4.0); Lymphocytes % 2.7 % (21.2-54.2); Mean Corpuscular HGB Conc 33.3 GM/DL (32-36); Mean Platelet Volume 11.9 FL (9.6-12.0); Monocytes # 0.3 10*3/uL (0.11-0.8); Monocytes % 1.5 % (1.7-12.7); Neutrophils % 94.5 % (38.7-73.9); Platelet Count 223 T/CUMM (130-400); Red Blood Count 3.03 MC/CUMM (3.8-5.5); Red Cell Distribution Width 16.2 % (9.3-17.3); White Blood Count 17.7 T/CUMM (4-12)
[2021-09-20 04:19] LABS: ABG HCO3 17.2 MMOL/L (20-26); ABG Oxygen Saturation 98.1 % (95-100); ABG PCO2 39.5 MM HG (35-48); ABG PH 7.257 (7.35-7.45); ABG TCO2 16.3 MMOL/L (23-27)
[2021-09-20 04:33] LABS: Alanine Aminotransferase 53 U/L (16-61); Albumin 1.4 G/DL (3.4-5.0); Alkaline Phosphatase 94 U/L (45-117); Aspartate Amino Transferase 59 U/L (0-37); Bilirubin,Total < 0.39 MG/DL (0.20-1.00); Blood Urea Nitrogen 146 MG/DL (7-18); Calcium 7.3 MG/DL (8.5-10.1); Carbon Dioxide 18 MMOL/L (21-32); Chloride 115 MMOL/L (98-107); Ferritin 936.4 ng/mL (26-388); Glucose 136 MG/DL (74-106); Osmolality,Calculated 335.8 MOS/KG (273-304); Potassium 5.3 MMOL/L (3.5-5.1); Sodium 144 MMOL/L (136-145); Total Protein 6.3 G/DL (6.4-8.2)
[2021-09-20 04:40] LABS: Lymphocytes 3 % (20-55); Nucleated Red Blood Cells 1 (0-5); Total Cells Counted 100
[2021-09-20 04:41] LABS: Platelet Estimate Normal
[2021-09-20] MEDS: ENOXAPARIN 30 MG/0.3 ML SYRINGE SUBCUT SCH (05:22)
[2021-09-20] MEDS: ALBUTEROL/IPRATROPIUM 3 ML NEB RESP TX SCH ×3 (07:20→19:50)
[2021-09-20] MEDS: MIDAZOLAM 100 MG in SODIUM CHLORIDE 0.9% 80 ML IV PRN ×2 (08:02→20:05)
[2021-09-20] MEDS: fentaNYL INJ 1,250 MCG in SODIUM CHLORIDE 0.9% 225 ML IV PRN ×2 (08:35→17:45)
[2021-09-20] MEDS ORDERED: SODIUM POLYSTYRENE SULFATE 15 GM/60 ML BOTTLE PO ONE (08:55)
[2021-09-20] MEDS: SODIUM BICARB INJ 100 MEQ in STERILE WATER INJ 1,000 ML IV SCH (09:00)
[2021-09-20] MEDS: METOPROLOL TARTRATE 25 MG TABLET PO SCH ×2 (09:07→20:08)
[2021-09-20] MEDS: amLODIPine 10 MG TABLET PO SCH (09:08)
[2021-09-20] MEDS: PANTOPRAZOLE 40 MG VIAL IV SCH (09:13)
[2021-09-20] MEDS: FOLIC ACID 1 MG TABLET PO SCH (20:08)
[2021-09-21] MEDS: INSULIN LISPRO 100 UNIT/ML SUBCUT SCH ×4 (00:23→17:53)
[2021-09-21] MEDS: ALBUTEROL/IPRATROPIUM 3 ML NEB RESP TX SCH ×4 (01:11→19:24)
[2021-09-21] MEDS: methylPREDNISolone SOD SUC 40 MG/1 ML VIAL IV SCH ×3 (01:55→17:54)
[2021-09-21] MEDS: METOCLOPRAMIDE 10 MG/2 ML VIAL IV SCH ×4 (02:07→20:16)
[2021-09-21] MEDS: fentaNYL INJ 1,250 MCG in SODIUM CHLORIDE 0.9% 225 ML IV PRN ×3 (03:05→21:35)
[2021-09-21 03:29] LABS: ABG Base Excess -7.7 MMOL/L (-2.5-2.5); ABG HCO3 18.2 MMOL/L (20-26); ABG Oxygen Saturation 96.4 % (95-100); ABG PCO2 45.1 MM HG (35-48); ABG PH 7.242 (7.35-7.45); ABG TCO2 18.3 MMOL/L (23-27)
[2021-09-21 03:35] LABS: Basophils % 0.1 % (0.0-0.8); Eosinophils # 0.1 10*3/uL (0.0-0.87); Eosinophils % 0.6 % (0.00-10.9); Hematocrit 27.5 VOL% (42.0-52.0); Hemoglobin 9.1 GM/DL (14.0-18.0); Immature Granulocytes Absolute 0.14 #; Lymphocytes # 0.7 10*3/uL (1.4-4.0); Lymphocytes % 4.6 % (21.2-54.2); Mean Corpuscular HGB Conc 33.1 GM/DL (32-36); Mean Corpuscular Volume 96.5 FL (87-102); Mean Platelet Volume 12.1 FL (9.6-12.0); Monocytes # 0.7 10*3/uL (0.11-0.8); Monocytes % 4.6 % (1.7-12.7); Neutrophils % 89.1 % (38.7-73.9); Platelet Count 265 T/CUMM (130-400); Red Blood Count 2.85 MC/CUMM (3.8-5.5); Red Cell Distribution Width 16.1 % (9.3-17.3); White Blood Count 14.7 T/CUMM (4-12)
[2021-09-21 03:48] LABS: Alanine Aminotransferase 55 U/L (16-61); Albumin 1.5 G/DL (3.4-5.0); Alkaline Phosphatase 84 U/L (45-117); Aspartate Amino Transferase 64 U/L (0-37); Bilirubin,Total < 0.39 MG/DL (0.20-1.00); Blood Urea Nitrogen 144 MG/DL (7-18); Calcium 7.1 MG/DL (8.5-10.1); Carbon Dioxide 19 MMOL/L (21-32); Chloride 114 MMOL/L (98-107); Glucose 130 MG/DL (74-106); Osmolality,Calculated 331.1 MOS/KG (273-304); Potassium 5.1 MMOL/L (3.5-5.1); Sodium 142 MMOL/L (136-145); Total Protein 6.3 G/DL (6.4-8.2)
[2021-09-21 03:52] LABS: Eosinophils 2 % (0-10); Lymphocytes 6 % (20-55); Nucleated Red Blood Cells 1 (0-5); Total Cells Counted 100
[2021-09-21 03:53] LABS: Platelet Estimate Normal
[2021-09-21] MEDS: ENOXAPARIN 30 MG/0.3 ML SYRINGE SUBCUT SCH (04:23)
[2021-09-21] MEDS: SODIUM BICARB INJ 100 MEQ in STERILE WATER INJ 1,000 ML IV SCH (07:09)
[2021-09-21] MEDS: MIDAZOLAM 100 MG in SODIUM CHLORIDE 0.9% 80 ML IV PRN ×2 (08:55→20:00)
[2021-09-21] MEDS: PANTOPRAZOLE 40 MG VIAL IV SCH (09:17)
[2021-09-21] MEDS: amLODIPine 10 MG TABLET PO SCH (09:21)
[2021-09-21] MEDS: LEVOFLOXACIN INJ 500 MG/100 ML PREMIX IV SCH (09:21)
[2021-09-21] MEDS: METOPROLOL TARTRATE 25 MG TABLET PO SCH ×2 (09:21→20:16)
[2021-09-21] MEDS: FOLIC ACID 1 MG TABLET PO SCH (20:16)
[2021-09-21] MEDS: QUEtiapine 25 MG TABLET PO SCH (21:25)
[2021-09-22] MEDS: ALBUTEROL/IPRATROPIUM 3 ML NEB RESP TX SCH ×4 (00:01→20:37)
[2021-09-22] MEDS: methylPREDNISolone SOD SUC 40 MG/1 ML VIAL IV SCH ×3 (00:51→17:04)
[2021-09-22] MEDS: INSULIN LISPRO 100 UNIT/ML SUBCUT SCH ×4 (00:52→18:16)
[2021-09-22] MEDS: METOCLOPRAMIDE 10 MG/2 ML VIAL IV SCH ×4 (02:15→21:44)
[2021-09-22 04:44] LABS: Basophils % 0.3 % (0.0-0.8); Eosinophils # 0.1 10*3/uL (0.0-0.87); Eosinophils % 0.6 % (0.00-10.9); Hemoglobin 8.7 GM/DL (14.0-18.0); Immature Granulocytes % 0.5 %; Immature Granulocytes Absolute 0.06 #; Lymphocytes # 0.5 10*3/uL (1.4-4.0); Lymphocytes % 4.3 % (21.2-54.2); Mean Corpuscular HGB Conc 33.5 GM/DL (32-36); Mean Corpuscular Volume 96.7 FL (87-102); Mean Platelet Volume 11.9 FL (9.6-12.0); Monocytes # 0.4 10*3/uL (0.11-0.8); Monocytes % 3.9 % (1.7-12.7); NRBC # 0.02 10*3/uL; Neutrophils % 90.4 % (38.7-73.9); Platelet Count 289 T/CUMM (130-400); Red Blood Count 2.69 MC/CUMM (3.8-5.5); Red Cell Distribution Width 15.8 % (9.3-17.3); White Blood Count 11.4 T/CUMM (4-12)
[2021-09-22 04:45] LABS: ABG Base Excess -6.8 MMOL/L (-2.5-2.5); ABG HCO3 18.8 MMOL/L (20-26); ABG Oxygen Saturation 98.4 % (95-100); ABG PCO2 41.6 MM HG (35-48); ABG TCO2 18.3 MMOL/L (23-27)
[2021-09-22 05:08] LABS: Band Neutrophils 1 % (0-10); Eosinophils 1 % (0-10); Lymphocytes 2 % (20-55); Platelet Estimate Adequate; Total Cells Counted 100
[2021-09-22 05:11] LABS: Alanine Aminotransferase 58 U/L (16-61); Albumin 1.4 G/DL (3.4-5.0); Alkaline Phosphatase 94 U/L (45-117); Aspartate Amino Transferase 54 U/L (0-37); Bilirubin,Total < 0.39 MG/DL (0.20-1.00); Blood Urea Nitrogen 130 MG/DL (7-18); Carbon Dioxide 19 MMOL/L (21-32); Chloride 109 MMOL/L (98-107); Ferritin 783.4 ng/mL (26-388); Glucose 146 MG/DL (74-106); Osmolality,Calculated 323.4 MOS/KG (273-304); Phosphorous 9.3 MG/DL (2.5-4.9); Potassium 5.2 MMOL/L (3.5-5.1); Sodium 140 MMOL/L (136-145)
[2021-09-22] MEDS: ENOXAPARIN 30 MG/0.3 ML SYRINGE SUBCUT SCH (05:29)
[2021-09-22] MEDS: SODIUM BICARB INJ 100 MEQ in STERILE WATER INJ 1,000 ML IV SCH (05:35)
[2021-09-22] MEDS: fentaNYL INJ 1,250 MCG in SODIUM CHLORIDE 0.9% 225 ML IV PRN (06:16)
[2021-09-22] MEDS ORDERED: FUROSEMIDE 40 MG/4 ML VIAL IV ONE (07:43)
[2021-09-22] MEDS: MIDAZOLAM 100 MG in SODIUM CHLORIDE 0.9% 80 ML IV PRN (07:54)
[2021-09-22] MEDS: METOPROLOL TARTRATE 25 MG TABLET PO SCH ×2 (09:56→21:51)
[2021-09-22] MEDS: PANTOPRAZOLE 40 MG VIAL IV SCH (09:56)
[2021-09-22] MEDS: amLODIPine 10 MG TABLET PO SCH (09:56)
[2021-09-22 16:29] LABS: ABG Base Excess -4.9 MMOL/L (-2.5-2.5); ABG HCO3 20.2 MMOL/L (20-26); ABG PCO2 43.2 MM HG (35-48); ABG PH 7.302 (7.35-7.45); ABG PO2 69.4 MM HG (80-95); ABG TCO2 19.7 MMOL/L (23-27)
[2021-09-22] MEDS: METOPROLOL TARTRATE 5 MG/5 ML VIAL IV PRN ×2 (18:26→23:50)
[2021-09-22] MEDS: hydrALAZINE 20 MG/1 ML VIAL IV PRN (21:41)
[2021-09-22] MEDS: FOLIC ACID 1 MG TABLET PO SCH (21:51)
[2021-09-22] MEDS: QUEtiapine 25 MG TABLET PO SCH (21:51)
[2021-09-22] MEDS: SODIUM BICARBONATE 650 MG TABLET PO SCH (21:51)
[2021-09-23] MEDS: methylPREDNISolone SOD SUC 40 MG/1 ML VIAL IV SCH ×3 (00:02→18:38)
[2021-09-23] MEDS ORDERED: MORPHINE 2 MG/1 ML SYRINGE IV ONE (00:47)
[2021-09-23] MEDS: INSULIN LISPRO 100 UNIT/ML SUBCUT SCH ×4 (00:48→18:39)
[2021-09-23] MEDS: ALBUTEROL/IPRATROPIUM 3 ML NEB RESP TX SCH ×4 (01:45→18:26)
[2021-09-23] MEDS: METOCLOPRAMIDE 10 MG/2 ML VIAL IV SCH ×4 (02:29→21:30)
[2021-09-23] MEDS: ENOXAPARIN 30 MG/0.3 ML SYRINGE SUBCUT SCH (04:02)
[2021-09-23 04:16] LABS: ABG Base Excess -3.7 MMOL/L (-2.5-2.5); ABG HCO3 21.3 MMOL/L (20-26); ABG PCO2 36.2 MM HG (35-48); ABG PH 7.373 (7.35-7.45); ABG PO2 94.6 MM HG (80-95); ABG TCO2 19.1 MMOL/L (23-27)
[2021-09-23 04:35] LABS: Basophils % 0.2 % (0.0-0.8); Eosinophils % 0.2 % (0.00-10.9); Hematocrit 30.2 VOL% (42.0-52.0); Hemoglobin 10.5 GM/DL (14.0-18.0); Immature Granulocytes % 0.7 %; Immature Granulocytes Absolute 0.11 #; Lymphocytes # 0.6 10*3/uL (1.4-4.0); Lymphocytes % 3.9 % (21.2-54.2); Mean Corpuscular HGB Conc 34.8 GM/DL (32-36); Mean Corpuscular Volume 92.9 FL (87-102); Mean Platelet Volume 11.8 FL (9.6-12.0); Monocytes # 0.9 10*3/uL (0.11-0.8); Monocytes % 5.4 % (1.7-12.7); Neutrophils % 89.6 % (38.7-73.9); Platelet Count 367 T/CUMM (130-400); Red Blood Count 3.25 MC/CUMM (3.8-5.5); Red Cell Distribution Width 14.8 % (9.3-17.3); White Blood Count 15.7 T/CUMM (4-12)
[2021-09-23] MEDS: SODIUM BICARB INJ 100 MEQ in STERILE WATER INJ 1,000 ML IV SCH (04:40)
[2021-09-23 04:50] LABS: Albumin 1.7 G/DL (3.4-5.0); Bilirubin,Total 0.4 MG/DL (0.20-1.00); Calcium 7.7 MG/DL (8.5-10.1); Osmolality,Calculated 326.3 MOS/KG (273-304); Phosphorous 8.4 MG/DL (2.5-4.9); Total Protein 6.7 G/DL (6.4-8.2)
[2021-09-23 05:01] LABS: Lymphocytes 4 % (20-55); Platelet Estimate Adequate; Total Cells Counted 100
[2021-09-23] MEDS ORDERED: ALBUMIN 5% 25 GM/500 ML VIAL IV SCH (08:30)
[2021-09-23] MEDS: METOPROLOL TARTRATE 5 MG/5 ML VIAL IV PRN (09:09)
[2021-09-23] MEDS: PANTOPRAZOLE 40 MG VIAL IV SCH (09:09)
[2021-09-23] MEDS: LEVOFLOXACIN INJ 500 MG/100 ML PREMIX IV SCH (09:10)
[2021-09-23] MEDS: FUROSEMIDE 40 MG/4 ML VIAL IV SCH ×2 (10:00→19:38)
[2021-09-23] MEDS: amLODIPine 10 MG TABLET PO SCH (10:06)
[2021-09-23] MEDS: SODIUM BICARBONATE 650 MG TABLET PO SCH ×2 (10:06→21:29)
[2021-09-23] MEDS: METOPROLOL TARTRATE 25 MG TABLET PO SCH ×2 (10:06→21:29)
[2021-09-23] MEDS: ALBUMIN 25% 25 GM/100 ML VIAL IV SCH (18:38)
[2021-09-23] MEDS: FOLIC ACID 1 MG TABLET PO SCH (21:29)
[2021-09-23] MEDS: QUEtiapine 25 MG TABLET PO SCH (21:29)
[2021-09-24] MEDS: ALBUTEROL/IPRATROPIUM 3 ML NEB RESP TX SCH ×4 (00:12→20:02)
[2021-09-24] MEDS: INSULIN LISPRO 100 UNIT/ML SUBCUT SCH ×4 (00:34→18:01)
[2021-09-24] MEDS: SODIUM BICARB INJ 100 MEQ in STERILE WATER INJ 1,000 ML IV SCH ×2 (01:00→03:52)
[2021-09-24] MEDS: ALBUMIN 25% 25 GM/100 ML VIAL IV SCH ×2 (01:49→09:58)
[2021-09-24] MEDS: methylPREDNISolone SOD SUC 40 MG/1 ML VIAL IV SCH ×4 (01:49→21:07)
[2021-09-24] MEDS: METOCLOPRAMIDE 10 MG/2 ML VIAL IV SCH ×4 (02:03→20:30)
[2021-09-24] MEDS: FUROSEMIDE 40 MG/4 ML VIAL IV SCH ×2 (02:52→09:55)
[2021-09-24 03:41] LABS: Basophils % 0.4 % (0.0-0.8); Eosinophils # 0.5 10*3/uL (0.0-0.87); Eosinophils % 4.9 % (0.00-10.9); Hematocrit 27.3 VOL% (42.0-52.0); Hemoglobin 9.2 GM/DL (14.0-18.0); Immature Granulocytes % 0.4 %; Immature Granulocytes Absolute 0.04 #; Lymphocytes # 0.8 10*3/uL (1.4-4.0); Lymphocytes % 7.1 % (21.2-54.2); Mean Corpuscular HGB Conc 33.7 GM/DL (32-36); Mean Corpuscular Volume 95.1 FL (87-102); Mean Platelet Volume 11.4 FL (9.6-12.0); Monocytes # 0.7 10*3/uL (0.11-0.8); Monocytes % 6.4 % (1.7-12.7); Neutrophils % 80.8 % (38.7-73.9); Platelet Count 329 T/CUMM (130-400); Red Blood Count 2.87 MC/CUMM (3.8-5.5); Red Cell Distribution Width 14.6 % (9.3-17.3); White Blood Count 10.6 T/CUMM (4-12)
[2021-09-24 03:56] LABS: Albumin 2.4 G/DL (3.4-5.0); Bilirubin,Total 0.5 MG/DL (0.20-1.00); Calcium 8.3 MG/DL (8.5-10.1); Osmolality,Calculated 328.6 MOS/KG (273-304); Potassium 3.6 MMOL/L (3.5-5.1); Total Protein 6.6 G/DL (6.4-8.2)
[2021-09-24] MEDS: ENOXAPARIN 30 MG/0.3 ML SYRINGE SUBCUT SCH (05:57)
[2021-09-24] MEDS: METOPROLOL TARTRATE 25 MG TABLET PO SCH ×2 (09:52→20:31)
[2021-09-24] MEDS: amLODIPine 10 MG TABLET PO SCH (09:53)
[2021-09-24] MEDS: PANTOPRAZOLE 40 MG VIAL IV SCH (09:53)
[2021-09-24] MEDS: FOLIC ACID 1 MG TABLET PO SCH (20:31)
[2021-09-24] MEDS: QUEtiapine 25 MG TABLET PO SCH (20:31)
[2021-09-25] MEDS: ALBUTEROL/IPRATROPIUM 3 ML NEB RESP TX SCH ×4 (00:43→19:20)
[2021-09-25] MEDS: INSULIN LISPRO 100 UNIT/ML SUBCUT SCH ×3 (01:35→11:39)
[2021-09-25] MEDS: ENOXAPARIN 30 MG/0.3 ML SYRINGE SUBCUT SCH (04:34)
[2021-09-25] MEDS: METOCLOPRAMIDE 10 MG/2 ML VIAL IV SCH (04:34)
[2021-09-25 04:43] LABS: Basophils # 0.1 10*3/uL (0.0-0.2); Basophils % 0.5 % (0.0-0.8); Eosinophils # 0.6 10*3/uL (0.0-0.87); Eosinophils % 5.6 % (0.00-10.9); Hematocrit 28.9 VOL% (42.0-52.0); Hemoglobin 9.4 GM/DL (14.0-18.0); Immature Granulocytes % 0.5 %; Immature Granulocytes Absolute 0.05 #; Lymphocytes # 1.4 10*3/uL (1.4-4.0); Lymphocytes % 12.8 % (21.2-54.2); Mean Corpuscular HGB Conc 32.5 GM/DL (32-36); Mean Corpuscular Volume 97.3 FL (87-102); Mean Platelet Volume 11.2 FL (9.6-12.0); Monocytes # 0.7 10*3/uL (0.11-0.8); Monocytes % 6.7 % (1.7-12.7); Neutrophils % 73.9 % (38.7-73.9); Platelet Count 314 T/CUMM (130-400); Red Blood Count 2.97 MC/CUMM (3.8-5.5); Red Cell Distribution Width 14.7 % (9.3-17.3); White Blood Count 10.8 T/CUMM (4-12)
[2021-09-25 05:07] LABS: Eosinophils 9 % (0-10); Hypochromia 1+; Lymphocytes 9 % (20-55); Macrocytosis Slight; Target Cells Slight; Total Cells Counted 100
[2021-09-25 05:08] LABS: Albumin 2.5 G/DL (3.4-5.0); Bilirubin,Total 0.7 MG/DL (0.20-1.00); Calcium 8.6 MG/DL (8.5-10.1); Osmolality,Calculated 324.4 MOS/KG (273-304); Platelet Estimate Normal; Potassium 3.4 MMOL/L (3.5-5.1); Total Protein 6.7 G/DL (6.4-8.2)
[2021-09-25] MEDS: MORPHINE 2 MG/1 ML SYRINGE IV PRN ×2 (05:23→09:03)
[2021-09-25] MEDS: PANTOPRAZOLE 40 MG VIAL IV SCH (08:45)
[2021-09-25] MEDS: amLODIPine 10 MG TABLET PO SCH (08:45)
[2021-09-25] MEDS: LEVOFLOXACIN INJ 500 MG/100 ML PREMIX IV SCH (08:47)
[2021-09-25] MEDS: METOPROLOL TARTRATE 25 MG TABLET PO SCH ×2 (08:58→20:36)
[2021-09-25] MEDS: methylPREDNISolone SOD SUC 40 MG/1 ML VIAL IV SCH ×2 (09:06→21:25)
[2021-09-25] MEDS: POTASSIUM CHLORIDE 20 MEQ TABLET PO PRN ×3 (09:58→14:15)
[2021-09-25] MEDS: FOLIC ACID 1 MG TABLET PO SCH (20:36)
[2021-09-25] MEDS: QUEtiapine 25 MG TABLET PO SCH (20:36)
[2021-09-26] MEDS: ALBUTEROL/IPRATROPIUM 3 ML NEB RESP TX SCH ×4 (00:05→19:32)
[2021-09-26 04:45] LABS: Basophils % 0.3 % (0.0-0.8); Eosinophils # 1.4 10*3/uL (0.0-0.87); Eosinophils % 12.9 % (0.00-10.9); Hemoglobin 9.3 GM/DL (14.0-18.0); Immature Granulocytes % 0.4 %; Immature Granulocytes Absolute 0.04 #; Lymphocytes # 1.7 10*3/uL (1.4-4.0); Lymphocytes % 15.7 % (21.2-54.2); Mean Corpuscular HGB Conc 33.2 GM/DL (32-36); Mean Corpuscular Volume 96.9 FL (87-102); Mean Platelet Volume 10.7 FL (9.6-12.0); Monocytes # 0.9 10*3/uL (0.11-0.8); Monocytes % 8.1 % (1.7-12.7); Neutrophils % 62.6 % (38.7-73.9); Platelet Count 289 T/CUMM (130-400); Red Blood Count 2.89 MC/CUMM (3.8-5.5); Red Cell Distribution Width 14.3 % (9.3-17.3); White Blood Count 10.8 T/CUMM (4-12)
[2021-09-26 05:08] LABS: Albumin 2.4 G/DL (3.4-5.0); Bilirubin,Total 0.6 MG/DL (0.20-1.00); Calcium 8.4 MG/DL (8.5-10.1); Potassium 3.8 MMOL/L (3.5-5.1); Total Protein 6.5 G/DL (6.4-8.2)
[2021-09-26 05:18] LABS: Eosinophils 12 % (0-10); Hypochromia 1+; Lymphocytes 6 % (20-55); Macrocytosis Slight; Total Cells Counted 100
[2021-09-26 05:19] LABS: Platelet Estimate Normal; Target Cells Slight
[2021-09-26] MEDS: ENOXAPARIN 30 MG/0.3 ML SYRINGE SUBCUT SCH (05:21)
[2021-09-26] MEDS: POTASSIUM CHLORIDE 20 MEQ TABLET PO PRN (08:47)
[2021-09-26] MEDS: LEVOFLOXACIN 750 MG TABLET PO SCH (08:47)
[2021-09-26] MEDS: METOPROLOL TARTRATE 25 MG TABLET PO SCH ×2 (08:47→22:27)
[2021-09-26] MEDS: amLODIPine 10 MG TABLET PO SCH (08:47)
[2021-09-26] MEDS: PANTOPRAZOLE 40 MG VIAL IV SCH (08:48)
[2021-09-26] MEDS: methylPREDNISolone SOD SUC 40 MG/1 ML VIAL IV SCH ×2 (08:48→22:25)
[2021-09-26] MEDS: QUEtiapine 25 MG TABLET PO SCH (22:25)
[2021-09-26] MEDS: FOLIC ACID 1 MG TABLET PO SCH (22:25)
[2021-09-27 04:51] LABS: Basophils % 0.2 % (0.0-0.8); Eosinophils # 0.6 10*3/uL (0.0-0.87); Eosinophils % 5.9 % (0.00-10.9); Hematocrit 28.7 VOL% (42.0-52.0); Hemoglobin 9.4 GM/DL (14.0-18.0); Immature Granulocytes % 0.4 %; Immature Granulocytes Absolute 0.04 #; Lymphocytes # 1.1 10*3/uL (1.4-4.0); Lymphocytes % 12.1 % (21.2-54.2); Mean Corpuscular HGB Conc 32.8 GM/DL (32-36); Mean Corpuscular Volume 97.3 FL (87-102); Mean Platelet Volume 10.9 FL (9.6-12.0); Monocytes # 0.6 10*3/uL (0.11-0.8); Monocytes % 5.9 % (1.7-12.7); Neutrophils % 75.5 % (38.7-73.9); Platelet Count 271 T/CUMM (130-400); Red Blood Count 2.95 MC/CUMM (3.8-5.5); Red Cell Distribution Width 14.1 % (9.3-17.3); White Blood Count 9.3 T/CUMM (4-12)
[2021-09-27 05:23] LABS: Osmolality,Calculated 296.4 MOS/KG (273-304); Potassium 4.4 MMOL/L (3.5-5.1)
[2021-09-27] MEDS: PANTOPRAZOLE 40 MG TABLET PO SCH (06:46)
[2021-09-27] MEDS: ALBUTEROL/IPRATROPIUM 3 ML NEB RESP TX SCH ×4 (07:20→19:21)
[2021-09-27] MEDS ORDERED: MAGNESIUM SULF RIDER 2 GM/50 ML PREMIX IV ONE (07:55)
[2021-09-27] MEDS: LEVOFLOXACIN 750 MG TABLET PO SCH (09:01)
[2021-09-27] MEDS: amLODIPine 10 MG TABLET PO SCH (09:01)
[2021-09-27] MEDS: METOPROLOL TARTRATE 25 MG TABLET PO SCH ×2 (09:01→22:05)
[2021-09-27] MEDS: ENOXAPARIN 40 MG/0.4 ML SYRINGE SUBCUT SCH (09:02)
[2021-09-27] MEDS: methylPREDNISolone SOD SUC 40 MG/1 ML VIAL IV SCH ×2 (09:05→22:00)
[2021-09-27] MEDS: QUEtiapine 25 MG TABLET PO SCH (22:05)
[2021-09-27] MEDS: FOLIC ACID 1 MG TABLET PO SCH (22:06)
[2021-09-28] MEDS: ALBUTEROL/IPRATROPIUM 3 ML NEB RESP TX SCH ×4 (00:28→20:19)
[2021-09-28] MEDS: PANTOPRAZOLE 40 MG TABLET PO SCH (05:41)
[2021-09-28 06:26] LABS: Basophils % 0.2 % (0.0-0.8); Eosinophils # 0.8 10*3/uL (0.0-0.87); Hematocrit 28.7 VOL% (42.0-52.0); Hemoglobin 9.3 GM/DL (14.0-18.0); Immature Granulocytes % 0.4 %; Immature Granulocytes Absolute 0.04 #; Lymphocytes # 1.5 10*3/uL (1.4-4.0); Lymphocytes % 14.9 % (21.2-54.2); Mean Corpuscular HGB Conc 32.4 GM/DL (32-36); Mean Corpuscular Volume 99.7 FL (87-102); Mean Platelet Volume 10.9 FL (9.6-12.0); Monocytes # 0.8 10*3/uL (0.11-0.8); Monocytes % 8.1 % (1.7-12.7); Neutrophils % 68.4 % (38.7-73.9); Platelet Count 250 T/CUMM (130-400); Red Blood Count 2.88 MC/CUMM (3.8-5.5); Red Cell Distribution Width 14.3 % (9.3-17.3); White Blood Count 10.3 T/CUMM (4-12)
[2021-09-28 06:45] LABS: Calcium 9.4 MG/DL (8.5-10.1); Osmolality,Calculated 291.8 MOS/KG (273-304); Potassium 4.5 MMOL/L (3.5-5.1)
[2021-09-28] MEDS: METOPROLOL TARTRATE 25 MG TABLET PO SCH ×2 (09:42→22:33)
[2021-09-28] MEDS: LEVOFLOXACIN 750 MG TABLET PO SCH (09:42)
[2021-09-28] MEDS: amLODIPine 10 MG TABLET PO SCH (09:42)
[2021-09-28] MEDS: ENOXAPARIN 40 MG/0.4 ML SYRINGE SUBCUT SCH (09:45)
[2021-09-28] MEDS: methylPREDNISolone SOD SUC 40 MG/1 ML VIAL IV SCH (09:46)
[2021-09-28] MEDS: predniSONE 10 MG TABLET PO SCH (13:05)
[2021-09-28] MEDS: QUEtiapine 25 MG TABLET PO SCH (22:33)
[2021-09-28] MEDS: FOLIC ACID 1 MG TABLET PO SCH (22:33)
[2021-09-29] MEDS: ALBUTEROL/IPRATROPIUM 3 ML NEB RESP TX SCH ×4 (00:42→18:57)
[2021-09-29 04:57] LABS: Calcium 9.5 MG/DL (8.5-10.1); Osmolality,Calculated 289.7 MOS/KG (273-304); Phosphorous 5.5 MG/DL (2.5-4.9); Potassium 4.3 MMOL/L (3.5-5.1)
[2021-09-29] MEDS: PANTOPRAZOLE 40 MG TABLET PO SCH (06:00)
[2021-09-29] MEDS: amLODIPine 10 MG TABLET PO SCH (08:54)
[2021-09-29] MEDS: LEVOFLOXACIN 750 MG TABLET PO SCH (08:54)
[2021-09-29] MEDS: predniSONE 10 MG TABLET PO SCH (08:54)
[2021-09-29] MEDS: METOPROLOL TARTRATE 25 MG TABLET PO SCH ×2 (08:54→20:25)
[2021-09-29] MEDS: ENOXAPARIN 40 MG/0.4 ML SYRINGE SUBCUT SCH (08:55)
[2021-09-29] MEDS: DOCUSATE SODIUM 100 MG CAPSULE PO SCH (20:25)
[2021-09-29] MEDS: FOLIC ACID 1 MG TABLET PO SCH (20:25)
[2021-09-29] MEDS: QUEtiapine 25 MG TABLET PO SCH (20:25)
[2021-09-30] MEDS: ALBUTEROL/IPRATROPIUM 3 ML NEB RESP TX SCH ×4 (00:07→19:16)
[2021-09-30 05:30] LABS: Basophils # 0.1 10*3/uL (0.0-0.2); Basophils % 0.6 % (0.0-0.8); Eosinophils # 1.7 10*3/uL (0.0-0.87); Eosinophils % 16.4 % (0.00-10.9); Hematocrit 32.3 VOL% (42.0-52.0); Hemoglobin 10.3 GM/DL (14.0-18.0); Immature Granulocytes % 0.7 %; Immature Granulocytes Absolute 0.07 #; Lymphocytes # 1.9 10*3/uL (1.4-4.0); Lymphocytes % 18.3 % (21.2-54.2); Mean Corpuscular HGB Conc 31.9 GM/DL (32-36); Mean Corpuscular Volume 100.6 FL (87-102); Mean Platelet Volume 11.3 FL (9.6-12.0); Monocytes # 1.3 10*3/uL (0.11-0.8); Monocytes % 12.3 % (1.7-12.7); Neutrophils % 51.7 % (38.7-73.9); Platelet Count 234 T/CUMM (130-400); Red Blood Count 3.21 MC/CUMM (3.8-5.5); Red Cell Distribution Width 14.6 % (9.3-17.3); White Blood Count 10.4 T/CUMM (4-12)
[2021-09-30 05:44] LABS: Osmolality,Calculated 287.8 MOS/KG (273-304); Potassium 4.2 MMOL/L (3.5-5.1)
[2021-09-30 05:59] LABS: Eosinophils 21 % (0-10); Lymphocytes 13 % (20-55); Platelet Estimate Adequate; Total Cells Counted 100
[2021-09-30] MEDS: PANTOPRAZOLE 40 MG TABLET PO SCH (06:16)
[2021-09-30] MEDS: ENOXAPARIN 40 MG/0.4 ML SYRINGE SUBCUT SCH (09:26)
[2021-09-30] MEDS: amLODIPine 10 MG TABLET PO SCH (09:27)
[2021-09-30] MEDS: LEVOFLOXACIN 750 MG TABLET PO SCH (09:27)
[2021-09-30] MEDS: METOPROLOL TARTRATE 25 MG TABLET PO SCH ×2 (09:27→21:38)
[2021-09-30] MEDS: predniSONE 10 MG TABLET PO SCH (09:27)
[2021-09-30] MEDS: DOCUSATE SODIUM 100 MG CAPSULE PO SCH ×2 (09:27→21:38)
[2021-09-30] MEDS: POLYETHYLENE GLYCOL POWDER 17 GM PACK PO SCH (09:28)
[2021-09-30] MEDS: QUEtiapine 25 MG TABLET PO SCH (21:38)
[2021-09-30] MEDS: FOLIC ACID 1 MG TABLET PO SCH (21:38)
[2021-10-01] MEDS: ALBUTEROL/IPRATROPIUM 3 ML NEB RESP TX SCH ×2 (00:12→07:31)
[2021-10-01 03:42] LABS: Basophils # 0.1 10*3/uL (0.0-0.2); Basophils % 0.7 % (0.0-0.8); Eosinophils # 1.2 10*3/uL (0.0-0.87); Eosinophils % 13.4 % (0.00-10.9); Hematocrit 30.9 VOL% (42.0-52.0); Hemoglobin 9.9 GM/DL (14.0-18.0); Immature Granulocytes % 0.7 %; Immature Granulocytes Absolute 0.06 #; Lymphocytes # 1.9 10*3/uL (1.4-4.0); Lymphocytes % 21.5 % (21.2-54.2); Mean Platelet Volume 10.6 FL (9.6-12.0); Monocytes # 1.1 10*3/uL (0.11-0.8); Monocytes % 12.6 % (1.7-12.7); Neutrophils % 51.1 % (38.7-73.9); Platelet Count 222 T/CUMM (130-400); Red Blood Count 3.06 MC/CUMM (3.8-5.5); Red Cell Distribution Width 14.6 % (9.3-17.3); White Blood Count 8.9 T/CUMM (4-12)
[2021-10-01 04:02] LABS: Calcium 9.4 MG/DL (8.5-10.1); Potassium 4.1 MMOL/L (3.5-5.1)
[2021-10-01 04:04] LABS: Eosinophils 13 % (0-10); Lymphocytes 23 % (20-55); Total Cells Counted 100
[2021-10-01 04:05] LABS: Hypochromia Slight; Macrocytosis Slight
[2021-10-01] MEDS: PANTOPRAZOLE 40 MG TABLET PO SCH (06:21)
[2021-10-01] MEDS ORDERED: SODIUM CHLORIDE 0.9% 1,000 ML IV SCH (08:00)
[2021-10-01] MEDS: ENOXAPARIN 40 MG/0.4 ML SYRINGE SUBCUT SCH (09:57)
[2021-10-01] MEDS: amLODIPine 10 MG TABLET PO SCH (09:58)
[2021-10-01] MEDS: DOCUSATE SODIUM 100 MG CAPSULE PO SCH (09:58)
[2021-10-01] MEDS: METOPROLOL TARTRATE 25 MG TABLET PO SCH (09:58)
[2021-10-01] MEDS: LEVOFLOXACIN 750 MG TABLET PO SCH (09:58)
[2021-10-01] MEDS: POLYETHYLENE GLYCOL POWDER 17 GM PACK PO SCH (09:58)
[2021-10-01] MEDS: predniSONE 10 MG TABLET PO SCH (09:59)
[2021-10-01 12:24] VITALS: BP 109/70
== END 2021-10-01 14:11 | DRG 870 ==
LOC: SUATTDRO 12:31 → N.CC 12:31 → N.5E 09-25 15:34
PROVIDERS: ADMIT Internal Medicine; ATTEND Family Medicine